=== PATIENT | female | born 1995 | race Caucasian/White ===

== ENCOUNTER → 2017-04-29 | Outpatient (CLI) | payer OTHER ==
[~2017-04-29] VITALS: Ht 167.6 cm; Wt 131.0 kg
[~2017-04-29] MED LIST: ENDOCET 5-3251 EACH PO; FERROGELS FORT1 EACH PO; GLYBURIDE2.5 MG PO; IBUPROFEN800 MG PO; LO-DOSE ASPIRIN81 M2 PO; MOTRIN800 MG PO; ORTHO CYCLEN1 TABLET PO; PNV-OB WITH DH1 EACH PO
[2017-04-29 16:37] VITALS: BP 127/69
== END | disposition home or self-care (01) ==
LOC: IVINF 15:00
DX: Z31.82 Encounter for Rh incompatibility status (principal)
CPT/HCPCS: 96372

== ENCOUNTER 2017-07-12 23:30 | Inpatient (IN) | payer OTHER ==
[2017-07-13 00:10] VITALS: BP 160/85
[2017-07-13 00:18] LABS: HEMATOCRIT 33.4 % (36.0-46.0); MCH 28.8 PG (29.0-34.0); MCHC 34.4 G/DL (30.0-36.0); MCV 83.5 FL (83-99); MEAN PLAT.VOLUME 10.5 uM^3 (9.5-12.4); PLATELET COUNT 204 K/uL (156-360); RBC DIS.WIDTH-SD 42.7 % (39-53); WHITE BLOOD COUNT 9.4 K/uL (4.1-10.2)
[2017-07-13 02:19] LABS: POINT-OF-CARE METER ID UU13113675
[2017-07-13 03:15] VITALS: BP 141/82
[2017-07-13 07:24] VITALS: BP 119/69
[2017-07-13 07:36] LABS: HEMATOCRIT 23.9 % (36.0-46.0); MCHC 33.5 G/DL (30.0-36.0); MCV 83.6 FL (83-99); MEAN PLAT.VOLUME 10.3 uM^3 (9.5-12.4); PLATELET COUNT 208 K/uL (156-360); RBC DIS.WIDTH-CV 14.3 % (11.8-14.6); RBC DIS.WIDTH-SD 43.7 % (39-53); RED BLOOD COUNT 2.86 M/uL (3.80-5.20); WHITE BLOOD COUNT 14.9 K/uL (4.1-10.2)
[2017-07-13 10:45] VITALS: BP 119/64
[2017-07-13 15:22] VITALS: BP 119/61
[2017-07-13 19:30] VITALS: BP 120/67
[2017-07-14] VITALS (32 sets, daily range): BP systolic 109–169; BP diastolic 53–91
[2017-07-14 08:30] LABS: EOSINOPHIL (%) 1.9 % (0-5); EOSINOPHIL COUNT 0.2 K/uL (0-0.3); HEMATOCRIT 19.8 % (36.0-46.0); IMMATURE GRANULOCYTE (%) 1.5 % (0.0-0.7); IMMATURE GRANULOCYTE COUNT 0.1 K/uL; INSTRUMENT ABS NEUTROPHIL CT 5.4 K/uL; LYMPHOCYTE COUNT 1.5 K/uL (1.0-2.8); MCH 28.3 PG (29.0-34.0); MCHC 32.8 G/DL (30.0-36.0); MCV 86.1 FL (83-99); MEAN PLAT.VOLUME 9.7 uM^3 (9.5-12.4); MONOCYTE (%) 8.9 % (3-12); MONOCYTE COUNT 0.7 K/uL (0-0.8); NEUTROPHIL (%) 68.4 % (45-76); NEUTROPHIL COUNT 5.4 K/uL (1.8-6.4); PLATELET COUNT 177 K/uL (156-360); RBC DIS.WIDTH-CV 14.8 % (11.8-14.6); RBC DIS.WIDTH-SD 45.6 % (39-53)
[2017-07-15 00:39] VITALS: BP 137/79
[2017-07-15 00:40] VITALS: BP 137/79
[2017-07-15 03:01] VITALS: BP 142/82
[2017-07-15 07:51] VITALS: BP 130/72
[2017-07-15 10:53] VITALS: BP 138/82
[2017-07-15 10:53] LABS: EOSINOPHIL (%) 1.4 % (0-5); EOSINOPHIL COUNT 0.1 K/uL (0-0.3); HEMATOCRIT 27.5 % (36.0-46.0); IMMATURE GRANULOCYTE (%) 1.9 % (0.0-0.7); IMMATURE GRANULOCYTE COUNT 0.2 K/uL; INSTRUMENT ABS NEUTROPHIL CT 7.7 K/uL; LYMPHOCYTE COUNT 1.1 K/uL (1.0-2.8); MCH 29.6 PG (29.0-34.0); MCHC 34.5 G/DL (30.0-36.0); MCV 85.7 FL (83-99); MEAN PLAT.VOLUME 9.7 uM^3 (9.5-12.4); MONOCYTE (%) 10.2 % (3-12); MONOCYTE COUNT 1.1 K/uL (0-0.8); NEUTROPHIL (%) 75.3 % (45-76); NEUTROPHIL COUNT 7.7 K/uL (1.8-6.4); NRBC (%) 0.4 /100 WBC (0-0); PLATELET COUNT 177 K/uL (156-360); RBC DIS.WIDTH-CV 14.5 % (11.8-14.6); RBC DIS.WIDTH-SD 44.8 % (39-53); RED BLOOD COUNT 3.21 M/uL (3.80-5.20); WHITE BLOOD COUNT 10.3 K/uL (4.1-10.2)
[2017-07-15 12:11] LABS: POINT-OF-CARE METER ID UU13113692
[2017-07-15 12:11] LABS: POINT-OF-CARE METER ID UU13113692
[2017-07-15 12:11] LABS: POINT-OF-CARE METER ID UU13113692
[2017-07-15 12:11] LABS: POINT-OF-CARE METER ID UU13113692
[2017-07-15 12:11] LABS: POINT-OF-CARE METER ID UU13113692
[2017-07-15 15:13] VITALS: BP 134/76
[2017-07-15 20:28] LABS: POINT-OF-CARE USER ID STWJCF31
[2017-07-16 06:12] LABS: POINT-OF-CARE METER ID UU13113801
[2017-07-16 06:41] LABS: POINT-OF-CARE METER ID UU13113692
[2017-07-16 10:01] LABS: HEMATOCRIT 28.2 % (36.0-46.0); MCH 28.9 PG (29.0-34.0); MCHC 33.3 G/DL (30.0-36.0); MCV 86.8 FL (83-99); MEAN PLAT.VOLUME 9.3 uM^3 (9.5-12.4); NRBC (%) 0.2 /100 WBC (0-0); PLATELET COUNT 220 K/uL (156-360); RBC DIS.WIDTH-CV 14.4 % (11.8-14.6); RBC DIS.WIDTH-SD 44.7 % (39-53); RED BLOOD COUNT 3.25 M/uL (3.80-5.20); WHITE BLOOD COUNT 9.4 K/uL (4.1-10.2)
[2017-07-16] MEDS ORDERED: DOCUSATE SODIU100 MG PO (11:26)
[2017-07-16] MEDS ORDERED: FERROUS SULFAT325 MG PO (11:26)
[2017-07-16] MEDS ORDERED: ENDOCET 5-3251 EACH PO (11:26)
[2017-07-16] MEDS ORDERED: ASCORBIC ACID500 M3 PO (11:26)
[2017-07-16] MEDS ORDERED: IBUPROFEN800 MG PO (11:26)
== END 2017-07-16 14:39 | disposition home or self-care (01) | DRG 765 ==
LOC: LDRP-OP 23:30 → 2WEST 23:31 → LDRP-OP 08-19 15:45
PROVIDERS: Obstetrics & Gynecology
DX: O36.63X0 Maternal care for excessive fetal growth, third trimester, not applicable or unspecified (principal); O75.82 Onset (spontaneous) of labor after 37 completed weeks of gestation but before 39 completed weeks gestation, with delivery by (planned) cesarean section; Z30.2 Encounter for sterilization; O62.2 Other uterine inertia; O99.02 Anemia complicating childbirth; D62 Acute posthemorrhagic anemia; Z3A.39 39 weeks gestation of pregnancy; Z37.0 Single live birth; O24.425 Gestational diabetes mellitus in childbirth, controlled by oral hypoglycemic drugs; O99.824 Streptococcus B carrier state complicating childbirth; E66.9 Obesity, unspecified; O99.214 Obesity complicating childbirth; Z68.41 Body mass index [BMI] 40.0-44.9, adult
CPT/HCPCS: 82948; 85025; 85025 91; 85027; 86900; 86901; 86920; 88302; 94640; G0378; J0330; J1170; J1580; J1885; J1940; J2210; J2270; J2274; J2405; J3010; J7120; P9016